=== PATIENT | male | born 2000 | race Caucasian/White ===

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

== ENCOUNTER 2021-12-04 08:08 | Day surgery (SDC) | payer OTHER ==
[~2021-12-04] VITALS: Ht 198.1 cm; Wt 91.8 kg
[~2021-12-04 08:08] MED LIST: AMPDEX10CR PO
--- NOTE | 2021-12-04 09:32 | NUR ---
PT ADMITTED TO [facility]. AGREES WITH PLANNED SURGERY. LUNG SOUNDS CLEAR.
--- NOTE | 2021-12-04 12:34 | NUR ---
Patient up to Ambulate independently. Gait steady. [employer] warming gown applied. Discharge instructions reviewed with patient. Patient verbalizes understanding. Copy given to patient to take home. History, Chart, Medications and Allergies reviewed before start of procedure.Patient States Post-Procedure ride home has been arranged. Discharged via wheelchair to private car for ride home.
== END 2021-12-04 12:32 | disposition home or self-care (01) ==
LOC: ORSCMMR 08:08 → ORD 10:30 → ORSCMMR 10:30
PROVIDERS: Orthopaedic Surgery
PROC: 0PSM34Z Reposition Right Carpal with Internal Fixation Device, Percutaneous Approach (ICD-10-PCS; principal; 2021-12-04 09:30)
DX: S62.001A Unspecified fracture of navicular [scaphoid] bone of right wrist, initial encounter for closed fracture (principal); Z79.899 Other long term (current) drug therapy
CPT/HCPCS: 73110; A9270; C1713; J0690; J1100; J2250; J2405; J2704; J3010; J7120